=== PATIENT | male | born 2000 | race Caucasian/White ===

== ENCOUNTER 2022-04-07 20:54 | Emergency (ER) | payer OTHER ==
[~2022-04-07] VITALS: Ht 172.7 cm; Wt 68.0 kg
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
[2022-04-07] MEDS ORDERED: IBUPROFEN 400 MG TABLET PO ONE (22:30)
[2022-04-07] MEDS ORDERED: IBUPROFEN 600 MG TABLET ONE (22:36)
[2022-04-07] MEDS ORDERED: IBUPROFEN 200 MG TABLET ONE (22:36)
[2022-04-08 00:04] VITALS: BP 122/71
--- NOTE | 2022-04-08 00:05 | NUR ---
Patient discharged to home in stable condition. Written and verbal after care instructions given. Patient verbalizes understanding of instruction.
== END 2022-04-08 00:05 | disposition home or self-care (01) ==
LOC: ER 20:58
DX: M62.838 Other muscle spasm (principal)
CPT/HCPCS: 72125-TC